=== PATIENT | male | born 1950 | race Two or more races ===

== ENCOUNTER 2017-09-07 09:42 | Emergency (ER) | payer MEDICARE ==
[2017-09-07] MEDS ORDERED: SODIUM CHLORIDE 0.9% 500 ML IV STA (09:50)
[2017-09-07 09:51] VITALS: RESP 16
--- NOTE | 2017-09-07 10:08 | ED ---
General Adult HPI - General Chief complaint: Seizure Stated complaint: Seizure Time Seen by Provider: 09/07/17 09:45 Source: family, EMS, RN notes reviewed Mode of arrival: EMS Limitations: language barrier, altered mental status - History of Present Illness Initial comments: This is a 66-year-old male who has a past medical history significant for right- sided stroke with residual deficit. Patient only can say a few words at a time normally. Patient's states he was on Keppra prophylactically for seizures and was recently taken off of it. states patient had a seizure lasting about 10 minutes Post ictal when EMS arrived. Patient states that he is back to his baseline at this time. states he has never had a seizure in the past. It is difficult to get any other history since the patient does not speak with the states that the patient has had no recent illness no recent fevers or chills no recent nausea vomiting no difficulty breathing. - Related Data Home Medications Medication Instructions Recorded Confirmed Metoprolol Tartrate [Lopressor] 12.5 mg PO BID 09/07/17 09/07/17 Sertraline [Zoloft] 50 mg PO DAILY 09/07/17 09/07/17 Previous Rx's Medication Instructions Recorded levETIRAcetam [Keppra] 250 mg PO Q12HR #20 tablet 09/07/17 Allergies Allergy/AdvReac Type Severity Reaction Status Date / Time No Known Allergies Allergy Verified 09/07/17 09:51 Review of Systems ROS Statement: Those systems with pertinent positive or pertinent negative responses have been documented in the HPI. ROS Other: All systems not noted in ROS Statement are negative. Past Medical History Past Medical History: COPD, CVA/TIA, Pneumonia History of Any Multi-Drug Resistant Organisms: None Reported Past Surgical History: Appendectomy, Hernia Repair, Orthopedic Surgery, Tonsillectomy Past Psychological History: No Psychological Hx Reported Smoking Status: Former smoker Past Alcohol Use History: None Reported Past Drug Use History: None Reported General Exam - General Exam Comments Initial Comments: GENERAL: Patient is well-developed and well-nourished. Patient is nontoxic and well- hydrated and is in no acute distress. ENT: Neck is soft and supple. No significant lymphadenopathy is noted. Oropharynx is clear. Moist mucous membranes. Neck has full range of motion without eliciting any pain. EYES: The sclera were anicteric and conjunctiva were pink and moist. Extraocular movements were intact and pupils were equal round and reactive to light. Eyelids were unremarkable. PULMONARY: Unlabored respirations. Good breath sounds bilaterally. No audible rales rhonchi or wheezing was noted. CARDIOVASCULAR: There is a regular rate and rhythm without any murmurs gallops or rubs. ABDOMEN: Soft and nontender with normal bowel sounds. No palpable organomegaly was noted. There is no palpable pulsatile mass. SKIN: Skin is clear with no lesions or rashes and otherwise unremarkable. NEUROLOGIC: Patient is alert and oriented at his baseline per his . Patient has right sided weakness and right-sided facial droop MUSCULOSKELETAL: Normal extremities with adequate strength and full range of motion. No lower extremity swelling or edema. No calf tenderness. LYMPHATICS: No significant lymphadenopathy is noted PSYCHIATRIC: Normal psychiatric evaluation. Normal interpersonal interactions appears functionally intact in deals appropriately with others. No signs of depression. No signs of anxiety. Limitations: language barrier, altered mental status Course Vital Signs 09/07/17 09/07/17 09:46 10:46 Temperature 98.5 F Pulse Rate 74 68 Respiratory 16 16 Rate Blood Pressure 162/87 141/71 O2 Sat by Pulse 95 100 Oximetry Medical Decision Making - Medical Decision Making EKG shows normal sinus rhythm at 71 bpm TN interval is 158 QRS is 74 QT interval 410 QTC is 445. Patient's EKG shows no ST segment elevation or depression or T wave normalities are noted. I gave the patient thousand milligrams of Keppra and I will send the patient home on the Keppra dose he had before and have him follow-up with his neurologist. - Lab Data Result diagrams: 09/07/17 09:57 09/07/17 09:57 Lab Results 09/07/17 09/07/17 Range/Units 09:57 09:57 WBC 6.8 (3.8-10.6) k/uL RBC 5.01 (4.30-5.90) m/uL Hgb 11.3 L (13.0-17.5) gm/dL Hct 40.1 (39.0-53.0) % MCV 80.1 (80.0-100.0) fL MCH 22.5 L (25.0-35.0) pg MCHC 28.1 L (31.0-37.0) g/dL RDW 17.1 H (11.5-15.5) % Plt Count 350 (150-450) k/uL Neutrophils % 72 % Lymphocytes % 17 % Monocytes % 6 % Eosinophils % 3 % Basophils % 1 % Neutrophils # 4.9 (1.3-7.7) k/uL Lymphocytes # 1.2 (1.0-4.8) k/uL Monocytes # 0.4 (0-1.0) k/uL Eosinophils # 0.2 (0-0.7) k/uL Basophils # 0.0 (0-0.2) k/uL Hypochromasia Marked Anisocytosis Slight Microcytosis Slight Sodium 140 (137-145) mmol/L Potassium 5.1 (3.5-5.1) mmol/L Chloride 106 (98-107) mmol/L Carbon Dioxide 20 L (22-30) mmol/L Anion Gap 14 mmol/L BUN 21 H (9-20) mg/dL Creatinine 1.26 H (0.66-1.25) mg/dL Est GFR (MDRD) Af Amer >60 (>60 ml/min/1.73 sqM) Est GFR (MDRD) Non-Af 57 (>60 ml/min/1.73 sqM) Glucose 84 (74-99) mg/dL Calcium 9.1 (8.4-10.2) mg/dL Total Bilirubin 0.2 (0.2-1.3) mg/dL AST 27 (17-59) U/L ALT 40 (21-72) U/L Alkaline Phosphatase 101 (38-126) U/L Total Protein 6.9 (6.3-8.2) g/dL Albumin 3.7 (3.5-5.0) g/dL Disposition Clinical Impression: New onset seizure Disposition: HOME SELF-CARE Condition: Good Instructions: New-Onset Seizure in Adults (ED) Prescriptions: levETIRAcetam [Keppra] 250 mg PO Q12HR #20 tablet Referrals: Tony John DO [Primary Care Provider] - 1-2 days Time of Disposition: 11:23
[2017-09-07 10:12] LABS: Anisocytosis Slight; Basophils % (A) 1 %; CH 22.7; CHCM 28.3; Eosinophils # (A) 0.2 k/uL (0-0.7); Eosinophils % (A) 3 %; HCT 40.1 % (39.0-53.0); HGB 11.3 gm/dL (13.0-17.5); Hypochromasia Marked; Luc # (Auto) 0.06; Luc % (Auto) 1; Lymphocytes # (A) 1.2 k/uL (1.0-4.8); Lymphocytes % (A) 17 %; MCH 22.5 pg (25.0-35.0); MCHC 28.1 g/dL (31.0-37.0); MCV 80.1 fL (80.0-100.0); Mean Platelet Volume 6.8; Microcytosis Slight; Monocytes # (A) 0.4 k/uL (0-1.0); Monocytes % (A) 6 %; Neutrophils # (A) 4.9 k/uL (1.3-7.7); Neutrophils % (A) 72 %; RBC 5.01 m/uL (4.30-5.90); RDW 17.1 % (11.5-15.5); WBC 6.8 k/uL (3.8-10.6); WBC (Perox) 6.88
[2017-09-07 10:16] LABS: ALT 40 U/L (21-72); AST 27 U/L (17-59); Alkaline Phosphatase 101 U/L (38-126); Anion Gap 14 mmol/L; Blood Urea Nitrogen 21 mg/dL (9-20); Calcium 9.1 mg/dL (8.4-10.2); Carbon Dioxide 20 mmol/L (22-30); Chloride 106 mmol/L (98-107); Glucose 84 mg/dL (74-99); Non-African American GFR(MDRD) 57 (>60 ml/min/1.73 sqM); Potassium 5.1 mmol/L (3.5-5.1); Sodium 140 mmol/L (137-145); Total Bilirubin 0.2 mg/dL (0.2-1.3); Total Protein 6.9 g/dL (6.3-8.2)
--- NOTE | 2017-09-07 10:34 | CT ---
EXAMINATION TYPE: CT brain wo con DATE OF EXAM: 09/07/2017 COMPARISON: NONE HISTORY: Seizure. Prior history of CVA CT DLP: 1098.80 mGycm Automated exposure control for dose reduction was used. FINDINGS: There has been a previous left MCA infarct. There are generalized changes of sulcal prominence and ventriculomegaly, compatible with atrophic leslee nge. There is diffuse periventricular white matter lucency, compatible with chronic white matter isch emic change. There is no acute focal lesion, mass effect or midline shift identified. I do not see ev idence of intracranial blood. Visualized portions of the paranasal sinuses and mastoids are clear. IMPRESSION: 1. NO ACUTE INTRACRANIAL ABNORMALITY. 2. EVIDENCE OF A PREVIOUS LEFT MCA INFARCT. 3. ATROPHIC CHANGE. 4. CHRONIC WHITE MATTER ISCHEMIC CHANGE.
[2017-09-07] MEDS ORDERED: levETIRAcetam 500 MG TAB PO STA (11:07)
[2017-09-07 12:11] VITALS: BP 123/73; PULSE 69; TEMP 97.2
== END 2017-09-07 12:11 | disposition home or self-care (01) ==
LOC: EC 09:42
DX: R56.9 Unspecified convulsions (principal); R41.82 Altered mental status, unspecified; R29.810 Facial weakness; Z87.891 Personal history of nicotine dependence; Z79.899 Other long term (current) drug therapy
CPT/HCPCS: 36415; 70450; 80053; 85025; 93005; 99285

== ENCOUNTER 2019-05-25 18:48 | Observation (INO) | payer MEDICARE ==
--- NOTE | 2019-05-25 19:12 | ED ---
Chest Pain HPI - General Stated Complaint: Chest Pain Time Seen by Provider: 05/25/19 19:07 Source: RN notes reviewed, old records reviewed - History of Present Illness Initial Comments: This is a 5-year-old male the ER for evaluation patient's a poor strain secondary to him and speak a seizure secondary to stroke. Patient's presenting for left sided chest pain chest pain that he noticed when he was putting him into bed. Pain seemed to be she was touching left-sided his chest patient has never had similar pain before. Aside from history of stroke patient has no history of heart disease. No recent travel history sick contacts no trauma no fevers cough or congestion or shortness of breath, patient has no pain currently. MD Complaint: chest pain (Sided) -: hour(s) Onset: during rest Pain Location: left chest Severity: mild Severity scale (1-10): 3 Quality: aching, sharp Consistency: constant Improves With: nothing Worsens With: nothing Anginal Symptoms: nausea Other Symptoms: cough Treatments Prior to Arrival: none - Related Data Home Medications Medication Instructions Recorded Confirmed Metoprolol Tartrate [Lopressor] 25 mg PO DAILY 09/07/17 05/25/19 Aspirin 162 mg PO DAILY 10/28/17 05/25/19 Atorvastatin Calcium [Lipitor] 40 mg PO HS 10/28/17 05/25/19 Clopidogrel Bisulfate [Plavix] 75 mg PO DAILY 10/28/17 05/25/19 Finasteride [Proscar] 5 mg PO DAILY 10/28/17 05/25/19 levETIRAcetam [Keppra] 250 mg PO DAILY 10/28/17 05/25/19 DULoxetine HCL [Cymbalta] 30 mg PO DAILY 05/25/19 05/25/19 Ferrous Sulfate [Feosol] 325 mg PO BID 05/25/19 05/25/19 Metoprolol Tartrate [Lopressor] 12.5 mg PO HS 05/25/19 05/25/19 Allergies Allergy/AdvReac Type Severity Reaction Status Date / Time No Known Allergies Allergy Verified 05/25/19 20:28 Review of Systems ROS Statement: Those systems with pertinent positive or pertinent negative responses have been documented in the HPI. ROS Other: All systems not noted in ROS Statement are negative. 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, seizure disorder, hypertension, BPH, degenerative arthritis, depression, hyperlipidemia History of Any Multi-Drug Resistant Organisms: None Reported Past Surgical History: Appendectomy, Hernia Repair, Orthopedic Surgery, Tonsillectomy Past Anesthesia/Blood Transfusion Reactions: No Reported Reaction Past Psychological History: No Psychological Hx Reported Smoking Status: Former smoker Past Alcohol Use History: None Reported Past Drug Use History: None Reported General Exam General appearance: alert, in no apparent distress Head exam: Present: atraumatic, normocephalic, normal inspection Eye exam: Present: normal appearance, PERRL, EOMI. Absent: scleral icterus, conjunctival injection, periorbital swelling ENT exam: Present: normal exam, mucous membranes moist Neck exam: Present: normal inspection. Absent: tenderness, meningismus, lymphadenopathy Respiratory exam: Present: normal lung sounds bilaterally. Absent: respiratory distress, wheezes, rales, rhonchi, stridor Cardiovascular Exam: Present: regular rate, normal rhythm, normal heart sounds. Absent: systolic murmur, diastolic murmur, rubs, gallop, clicks GI/Abdominal exam: Present: soft, normal bowel sounds. Absent: distended, tenderness, guarding, rebound, rigid Extremities exam: Present: normal inspection, full ROM, normal capillary refill. Absent: tenderness, pedal edema, joint swelling, calf tenderness Back exam: Present: normal inspection Neurological exam: Present: alert, oriented X3, CN II-XII intact Psychiatric exam: Present: normal affect, normal mood Skin exam: Present: warm, dry, intact, normal color. Absent: rash Course Vital Signs 05/25/19 05/25/19 19:09 19:20 Temperature 99.4 F Pulse Rate 90 Pulse Rate [ 80 Flame Planer ] Respiratory 16 Rate Blood Pressure 105/81 O2 Sat by Pulse 96 Oximetry - Reevaluation(s) Reevaluation #1: 05/25/19 20:28 Medical record is reviewed Reevaluation #2: 05/25/19 20:28 No chest pain Chest Pain MDM - MDM 68-year-old male the ER for evaluation patient presents today for evaluation regarding chest pain no specific chest pain findings here x-rays negative labwork normal and EKG is negative for acute disease Disposition Clinical Impression: Atypical chest pain, Recurrent left pleural effusion, Community acquired pneumonia Disposition: ADMITTED IP TO THIS HOSP Condition: Good Is patient prescribed a controlled substance at d/c from ED?: No Referrals: Tony John DO [Primary Care Provider] - 1-2 days
[2019-05-25 20:08] LABS: Basophils # (A) 0.1 k/uL (0-0.2); Basophils % (A) 1 %; Eosinophils # (A) 0.4 k/uL (0-0.7); Eosinophils % (A) 4 %; HCT 47.6 % (39.0-53.0); HGB 15.3 gm/dL (13.0-17.5); Lymphocytes # (A) 1.3 k/uL (1.0-4.8); Lymphocytes % (A) 15 %; MCH 28.8 pg (25.0-35.0); MCHC 32.1 g/dL (31.0-37.0); MCV 89.6 fL (80.0-100.0); Mean Platelet Volume 7.3; Monocytes # (A) 0.8 k/uL (0-1.0); Monocytes % (A) 9 %; Neutrophils % (A) 70 %; Platelet Count 266 k/uL (150-450); RBC 5.31 m/uL (4.30-5.90); RDW 14.9 % (11.5-15.5); WBC 8.5 k/uL (3.8-10.6)
[2019-05-25 20:10] LABS: INR 0.9 (<1.2); Partial Thromboplastin Time 27.7 sec (22.0-30.0); Prothrombin Time 9.8 sec (9.0-12.0)
[2019-05-25 20:11] LABS: Albumin 3.4 g/dL (3.5-5.0); Calcium 8.9 mg/dL (8.4-10.2); Total Bilirubin 0.6 mg/dL (0.2-1.3); Total Protein 6.5 g/dL (6.3-8.2)
[2019-05-25 20:13] LABS: Potassium 5.3 mmol/L (3.5-5.1)
--- NOTE | 2019-05-25 20:41 | XR ---
EXAMINATION TYPE: XR chest 2V DATE OF EXAM: 05/25/2019 COMPARISON: 11/02/2017 HISTORY: 68-year-old male with chest pain TECHNIQUE: AP and lateral views FINDINGS: Heart normal size. Small left pleural effusion with adjacent opacity. Mild interstitial prominence is unchanged. IMPRESSION: Small left pleural effusion with adjacent atelectasis and/or consolidation.
[2019-05-25] MEDS ORDERED: PNEUMONIA PROTOCOL UTILIZED 1 EACH MISC PO PRN (20:52)
[2019-05-25] MEDS ORDERED: IPRATROPIUM-ALBUTEROL 3 ML NEB INHALATION PRN (20:52)
[2019-05-25] MEDS: SODIUM CHLORIDE 0.9% 1,000 ML IV SCH (21:10)
--- NOTE | 2019-05-25 23:38 | P.HPIM ---
History of Present Illness H&P Date: 05/25/19 Chief Complaint: left-sided chest pain 68-year-old male with history of seizure, stroke, hypertension, BPH patient is nonverbal history obtained by talking to the wifeAt bedside She was at his baseline status of health however today when the is moving them around she noticed that she's probably complaining of left-sided chest pain when she touched his left shoulder and left side of the chest. Patient got concerned and decided to bring him to the hospital thinking that he might have pneumonia. When asked, the denies any coughing or trouble breathing or any labored or heavy breathing, denies any fevers or chills. Denies any sick contacts. Denies any changes in mental status. Denies any changes in his appetite. In the ED x-rays of the chest showed possible small pleural effusion on the left side patient was admitted under observation for pulmonary evaluation for possible tapping of that fluid at the indicated in the past he had large amounts of fluid taken out of his lungs when he had pneumonia EKG was unremarkable Labs showed no leukocytosis, mild hyperkalemia. patient is bedridden at home, spends his day sitting in a chair watching TV. 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, seizure disorder, hypertension, BPH, degenerative arthritis, depression, hyperlipidemia History of Any Multi-Drug Resistant Organisms: None Reported Past Surgical History: Appendectomy, Hernia Repair, Orthopedic Surgery, Tonsillectomy Past Anesthesia/Blood Transfusion Reactions: No Reported Reaction Past Psychological History: No Psychological Hx Reported Smoking Status: Former smoker Past Alcohol Use History: None Reported Past Drug Use History: None Reported - Past Family History Father Family Medical History: No Reported History Mother Family Medical History: No Reported History Medications and Allergies Home Medications Medication Instructions Recorded Confirmed Type Metoprolol Tartrate [Lopressor] 25 mg PO DAILY 09/07/17 05/25/19 History Aspirin 162 mg PO DAILY 10/28/17 05/25/19 History Atorvastatin Calcium [Lipitor] 40 mg PO HS 10/28/17 05/25/19 History Clopidogrel Bisulfate [Plavix] 75 mg PO DAILY 10/28/17 05/25/19 History Finasteride [Proscar] 5 mg PO DAILY 10/28/17 05/25/19 History levETIRAcetam [Keppra] 250 mg PO DAILY 10/28/17 05/25/19 History DULoxetine HCL [Cymbalta] 30 mg PO DAILY 05/25/19 05/25/19 History Ferrous Sulfate [Feosol] 325 mg PO BID 05/25/19 05/25/19 History Metoprolol Tartrate [Lopressor] 12.5 mg PO HS 05/25/19 05/25/19 History Allergies Allergy/AdvReac Type Severity Reaction Status Date / Time No Known Allergies Allergy Verified 05/25/19 20:28 Physical Exam Vitals: Vital Signs Temp Pulse Pulse Resp BP Pulse Ox 05/25/19 21:18 98.9 F 85 15 126/84 96 05/25/19 19:20 80 05/25/19 19:09 99.4 F 90 16 105/81 96 Intake and Output 05/25/19 05/25/19 05/25/19 06:59 14:59 22:59 Other: Weight 65.771 kg Constitutional: No acute distress,patient is nonverbal, pleasant Eyes: Anicteric sclerae, moist conjunctiva, no lid-lag Pupils equal round reactive to light ENMT: NC/AT Oropharynx clear, no erythema, exudates Neck: Supple, FROM, no masses, or JVD No carotid bruits No thyromegaly Lungs: Clear to auscultation Clear to percussion Normal respiratory effort, no accessory muscle use Cardiovascular: Heart regular in rate and rhythm, No murmurs, gallops, or rubs No peripheral edema Abdominal: Soft Nontender, no guarding, rebound or rigidity Abdomen moving with respiration Normoactive bowel sounds No hepatomegaly, No splenomegaly No palpable mass No abdominal wall hernia noted Skin: Normal temperature, tone, texture, turgor No induration No subcutaneous nodules No rash, lesions No ulcers Extremities: No digital cyanosis No clubbing Pedal pulses intact and symmetrical Radial pulses intact and symmetrical No calf tenderness Psychiatric: Alert nonverbal, makes good eye contact follow simple commands Appropriate affect Neuro Muscles Strength 5/5 over the left side upper and lower extremities, however right-sided upper and lower extremities paralyzed sensation intact over the left side and decreased over the right side Cranial nerves II-XII grossly intact deep tendon reflexes present on bilateral knees Lymphatics: no palpable cervical or supraclavicular , or inguinal lymph nodes Results CBC & Chem 7: 05/25/19 19:39 05/25/19 19:39 Labs: Abnormal Lab Results - Last 24 Hours (Table) 05/25/19 Range/Units 19:39 Sodium 133 L (137-145) mmol/L Potassium 5.3 H (3.5-5.1) mmol/L Glucose 112 H (74-99) mg/dL Albumin 3.4 L (3.5-5.0) g/dL Assessment and Plan Assessment: 68-year-old male with history of stroke admitted under observation with anticipated length of stay less than 48 hours due to left-sided chest pain in the ED found to have left pleural effusion patient has history of recurrent pneumonia she is admitted for pulmonary evaluation of left pleural effusion for possible tapping Plan: left-sided chest pain small left-sided pleural effusion Rule out pneumonia, history of recurrent pneumonia Pulmonary evaluation for possible tapping monitor vital signs Check cultures No antibiotics started at this time Mild hyperkalemia Insulin and D50 Follow-up levels History of stroke with right-sided paralysis Fall precautions Resume aspirin and statin Regular diet, aspiration precautions DVT prophylaxis Lovenox History of seizure poststroke Continue with Keppra BPH Resume home meds Surrogate decision-maker:patient CODE STATUS:full code Discussed with: Patient, ER, RN Anticipated discharge: pleasant [address]: home A total of 60 minutes was spent on the care of this complex patient more than 50% of the time was spent in counseling and care coordination.
[2019-05-25 23:50] LABS: Glucose,Whole Blood 113 mg/dL (75-99)
[2019-05-26] MEDS ORDERED: INSULIN REGULAR 100 UNIT/ML VIAL IV ONE
[2019-05-26] MEDS ORDERED: DEXTROSE 50% SYRINGE 50 ML IVP ONE
[2019-05-26] MEDS ORDERED: DULoxetine HCL 30 MG CAPSULE.DR PO SCH (09:00)
[2019-05-26] MEDS ORDERED: ENOXAPARIN 40 MG/0.4 ML SYRINGE SQ SCH (09:00)
[2019-05-26] MEDS ORDERED: FINASTERIDE 5 MG TAB PO SCH (09:00)
[2019-05-26] MEDS ORDERED: levETIRAcetam 250 MG TAB PO SCH (09:00)
[2019-05-26] MEDS ORDERED: CLOPIDOGREL 75 MG TAB PO SCH (09:00)
[2019-05-26] MEDS ORDERED: FERROUS SULFATE 325 MG TAB PO SCH (09:00)
[2019-05-26] MEDS ORDERED: ASPIRIN 81 MG PO SCH (09:00)
[2019-05-26] MEDS ORDERED: METOPROLOL TARTRATE 25 MG TAB PO SCH ×2 (09:00)
--- NOTE | 2019-05-26 09:18 | US ---
EXAMINATION TYPE: US chest DATE OF EXAM: 05/26/2019 COMPARISON: The CLINICAL HISTORY: pleural effusion. TECHNIQUE: Targeted ultrasound of the posterior lower EXAM MEASUREMENTS: Right Pleural Effusion pocket size: no evident fluid Left Pleural Effusion pocket size: 1.5 cm Left skin surface to fluid distance: 3.1 cm Right side not marked for possible thoracentesis outside the dept. Left side not marked for possible thoracentesis outside the dept. Pulmonologists are able to review the images in the patient?s EMR. IMPRESSION: Recurrent trace left pleural effusion. No right pleural effusion seen. IMPRESSIONS:
[2019-05-26 09:21] LABS: Calcium 8.6 mg/dL (8.4-10.2)
[2019-05-26] MEDS: SODIUM CHLORIDE 0.9% 1,000 ML IV SCH (09:23)
--- NOTE | 2019-05-26 12:01 | XR ---
EXAMINATION TYPE: XR chest 2V DATE OF EXAM: 05/26/2019 COMPARISON: 05/25/2019 HISTORY: Cough TECHNIQUE: Frontal and lateral views of the chest are obtained. FINDINGS: There is minimal interstitial prominence, similar to the prior. Slight improved aeration o f the left lung base with strand-like bibasilar atelectasis and overall low lung volumes. Cardia medi astinal silhouette is within normal limits. No sizable pleural effusion on the right. Trace left pleu ral effusion is seen. No acute osseous abnormality is evident. IMPRESSION: Slight improved aeration of the left lung base with trace left pleural effusion remainin g.
[2019-05-26 14:53] VITALS: BP 122/84; PULSE 62; RESP 18; TEMP 97.9
--- NOTE | 2019-05-26 15:10 | P.CNPUL ---
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 Denied any shortness of breath, there was no cough or congestion, no fever or chills. No history of recent trauma. No Sick contacts, no exertion. Patient has expressive aphasia, and is a poor historian, so mostly history was obtained from his . Patient after his stroke has been dependent on his for all activities of daily living, patient is mostly chair bound he does get around in his wheelchair, has right-sided weakness, with gait dysfunction. The chest pain persisted, and the insisted patient come in to the hospital to be evaluated. Chest x-ray was obtained showing small left pleural effusion with adjacent atelectasis and/or consolidation. EKG showed normal sinus rhythm without evidence of ST or T-wave abnormality. Ultrasound of the chest was obtained showing only a 1.5 cm fluid pocket on the left. Her pulse ox is 96%, patient is afebrile, hemodynamically stable, his respirations are nonlabored. Today's chest x-ray has been reviewed, showing slight improv ement in aeration of the left lung base with trace left pleural effusion. Labs showed white blood cell count of 8.5, hemoglobin 15.3, sodium of 133, potassium is 5.3, CO2 is 24, B1 is 20, creatinine 0.99, troponin was negative 1, proBNP was within normal limits at 160. Patient is calm and comfortable, he is resting in bed, on room air, is difficult to obtain related to history of expressive aph marisela, no acute discomfort, no pain or wincing with deep breathing or palpation of the chest. No cough or congestion. Patient's stated patient had been eating by mouth, and apparently has not been experiencing any swallowing issues with regular diet and thin liquids. Review of Systems All systems: negative Constitutional: Denies chills, Denies fever Eyes: denies blurred vision, denies pain Ears, nose, mouth and throat: Denies headache, Denies sore throat Cardiovascular: Reports chest pain, Denies shortness of breath Respiratory: Denies cough Gastrointestinal: Denies abdominal pain, Denies diarrhea, Denies nausea, Denies vomiting Musculoskeletal: Denies myalgias Integumentary: Denies pruritus, Denies rash Neurological: Denies numbness, Denies weakness Psychiatric: Denies anxiety, Denies depression Endocrine: Denies fatigue, Denies weight change Past Medical History Past Medical History: CVA/TIA, Hypertension, Pneumonia, Seizure Disorder Additional Past Medical History / Comment(s): CVA with right-sided hemiplegia and expressive aphasia, seizure disorder, hypertension, BPH, degenerative arthritis, depression, hyperlipidemia History of Any Multi-Drug Resistant Organisms: None Reported Past Surgical History: Appendectomy, Hernia Repair, Orthopedic Surgery, Tonsillectomy Past Anesthesia/Blood Transfusion Reactions: No Reported Reaction Past Psychological History: No Psychological Hx Reported Smoking Status: Former smoker Past Alcohol Use History: None Reported Past Drug Use History: None Reported - Past Family History Father Family Medical History: No Reported History Mother Family Medical History: No Reported History Medications and Allergies Home Medications Medication Instructions Recorded Confirmed Type Metoprolol Tartrate [Lopressor] 25 mg PO DAILY 09/07/17 05/25/19 History Aspirin 162 mg PO DAILY 10/28/17 05/25/19 History Atorvastatin Calcium [Lipitor] 40 mg PO HS 10/28/17 05/25/19 History Clopidogrel Bisulfate [Plavix] 75 mg PO DAILY 10/28/17 05/25/19 History Finasteride [Proscar] 5 mg PO DAILY 10/28/17 05/25/19 History levETIRAcetam [Keppra] 250 mg PO DAILY 10/28/17 05/25/19 History DULoxetine HCL [Cymbalta] 30 mg PO DAILY 05/25/19 05/25/19 History Ferrous Sulfate [Feosol] 325 mg PO BID 05/25/19 05/25/19 History Metoprolol Tartrate [Lopressor] 12.5 mg PO HS 05/25/19 05/25/19 History Allergies Allergy/AdvReac Type Severity Reaction Status Date / Time No Known Allergies Allergy Verified 05/25/19 20:28 Physical Exam Vitals: Vital Signs Temp Pulse Pulse Pulse Resp BP BP 05/26/19 14:31 97.9 F 62 18 122/84 05/26/19 07:35 60 05/26/19 07:22 56 L 05/26/19 07:00 98.0 F 64 16 115/79 05/26/19 03:20 16 05/26/19 00:11 98.7 F 67 14 112/68 05/25/19 22:04 98.8 F 74 18 104/70 05/25/19 21:18 98.9 F 85 15 126/84 05/25/19 19:20 80 05/25/19 19:09 99.4 F 90 16 105/81 Pulse Ox 05/26/19 14:31 94 L 05/26/19 07:35 05/26/19 07:22 96 05/26/19 07:00 96 05/26/19 03:20 05/26/19 00:11 96 05/25/19 22:04 96 05/25/19 21:18 96 05/25/19 19:20 05/25/19 19:09 96 Intake and Output 05/25/19 05/26/19 05/26/19 22:59 06:59 14:59 Intake Total 100 800 238 Balance 100 800 238 Intake: Intake, IV Titration 100 800 Amount Sodium Chloride 0.9% 1, 100 800 000 ml @ 100 mls/hr IV . Q10H [facility] Rx#:[id number] Oral 238 Other: Voiding Method Diaper Diaper Incontinent Incontinent # Voids 2 2 Weight 65.771 kg GENERAL EXAM: Alert, pleasant, 68-year-old white male patient with right-sided weakness, and facial weakness, currently on room air, with a pulse ox of 96% comfortable in no apparent distress. HEAD: Normocephalic/atraumatic. EYES: Normal reaction of pupils, equal size. Conjunctiva pink, sclera white. NOSE: Clear with pink turbinates. THROAT: No erythema or exudates. NECK: No masses, no JVD, no thyroid enlargement, no adenopathy. CHEST: No chest wall deformity. Symmetrical expansion. LUNGS: Equal air entry with limited crackles and bilateral bases, but no wheeze, rhonchi or dullness. CVS: Regular rate and rhythm, normal S1 and S2, no gallops, no murmurs, no rubs ABDOMEN: Soft, nontender. No hepatosplenomegaly, normal bowel sounds, no guarding or rigidity. EXTREMITIES: No clubbing, no edema, no cyanosis, 2+ pulses and upper and lower extremities. MUSCULOSKELETAL: Muscle strength and tone normal. SPINE: No scoliosis or deformity SKIN: No rashes CENTRAL NERVOUS SYSTEM: Alert and oriented -3. No focal deficits, tone is normal in all 4 extremities. PSYCHIATRIC: Alert and oriented -3. Appropriate affect. Intact judgment and insight. Results - Laboratory Findings CBC and BMP: 05/25/19 19:39 05/26/19 08:06 PT/INR, D-dimer PT 9.8 sec (9.0-12.0) 05/25/19 19:39 INR 0.9 (<1.2) 05/25/19 19:39 D-Dimer 1.32 mg/L FEU (<0.60) H 05/26/19 11:59 Abnormal lab findings: Abnormal Labs 05/25/19 05/25/19 05/26/19 19:39 23:48 11:59 D-Dimer 1.32 H Sodium 133 L Potassium 5.3 H Glucose 112 H POC Glucose (mg/dL) 113 H Albumin 3.4 L - Diagnostic Findings Chest x-ray: report reviewed, image reviewed Assessment and Plan Plan: Assessment: #1. Left-sided chest wall pain possibly musculoskeletal in origin, he denied any shortness of breath, denied any other pulmonary symptoms. EKG was within normal limits, without ST or T-wave abnormalities, troponin was negative, proBNP was within normal limits #2. Elevated d-dimer, will obtain CTA chest #3. Small left pleural effusion, an ultrasound of the chest did not show sizable pocket for drainage #4. History of previous CVA with right-sided paralysis, and expressive aphasia #5. Hypertension #6. Recent episode of pneumonia #7. Seizure disorder #8. BPH #9. Degenerative arthritis #10. Depression #11. Hyperlipidemia #12. Gait dysfunction Plan: Ultrasound of the chest did not show sizable pleural effusion pocket for drainage, patient never even complain of any shortness of breath, denied any other pulmonary symptoms, left-sided chest wall pain likely related to musculoskeletal origin, d-dimer came back elevated, will obtain CTA chest, signs are stable, patient is maintained stable oxygenation on room air, troponin is negative, proBNP is within normal limits. Otherwise clinically stable, no acute complaints. I performed a history & physical examination of the patient and discussed their management with my nurse practitioner, Татьяна Pang. I reviewed the nurse alphonso barroso's note and agree with the documented findings and plan of care. Lung sounds are positive for basilar crackles. The findings and the impression was discussed with the patient. I attest to the documentation by the nurse practitioner. Time with Patient: Greater than 30
--- NOTE | 2019-05-26 16:21 | CT ---
EXAMINATION TYPE: CT chest angio for PE DATE OF EXAM: 05/26/2019 COMPARISON: Radiograph same day HISTORY: 68-year-old male shortness of breath, rule out pulmonary embolus TECHNIQUE: Contiguous axial scanning of the chest performed with IV Contrast, patient injected with 1 00 mL of Isovue 370. Coronal/sagittal MIP reconstructions performed. CT DLP: 401 mGycm Automated exposure control for dose reduction was used. FINDINGS: Heart normal size without pericardial effusion. Aorta normal caliber with mild arch calcifications and conventional arch vessel branching anatomy. 1.9 cm nodule posterior right lobe of the thyroid gland can be assessed with thyroid ultrasound. No thoracic lymphadenopathy by CT size criteria. Mild to moderate bilateral gynecomastia. There is moderate centrilobular emphysema. Small left pleural effusion is present with adjacent atele ctasis. Some corresponding volume loss and slight leftward shift shift of the heart. Some subtle pleural-based calcifications posterior right upper lobe level. Motion artifacts. No large central or definite lobar pulmonary embolus. Segmental and more distal art erial branches are limited in assessment due to the degree of motion. Visualized upper abdomen shows a 3.8 cm fluid attenuating cyst posteriorly in the right kidney. Bones: Mild multilevel degenerative disc disease. IMPRESSION: 1. MOTION ARTIFACT LIMITING ASSESSMENT FOR PE. NO LARGE CENTRAL OR DEFINITE LOBAR PULMONARY EMBOLUS. ASSESSMENT OF MANY OF THE SEGMENTAL AND MORE DISTAL ARTERIAL BRANCHES IS NONDIAGNOSTIC AND EMBOLI IN THESE LOCATIONS CANNOT BE ADEQUATELY EXCLUDED ON THE BASIS OF THIS EXAM. 2. COPD WITH MODERATE EMPHYSEMA. 3. SMALL LEFT PLEURAL EFFUSION WITH PROMINENT ADJACENT LEFT BASILAR ATELECTASIS. THE VOLUME LOSS RESU LTS IN SOME LEFTWARD SHIFT OF THE HEART. 4. SCATTERED PLEURAL-BASED CALCIFICATIONS ON THE RIGHT. CORRELATE FOR ANY POSSIBLE HISTORY OF PRIOR A SBESTOS EXPOSURE OR PRIOR EMPYEMA/HEMOTHORAX. 5. A 1.9 CM NODULE WITHIN THE RIGHT LOBE OF THE THYROID GLAND. DEDICATED THYROID ULTRASOUND CAN FURTH ER EVALUATE.
--- NOTE | 2019-05-26 17:55 | P.DS ---
Providers Date of admission: 05/25/19 20:52 Expected date of discharge: 05/26/19 Attending physician: Yaquelin Devries DO Consults: 05/25/19 20:52 Consult Physician Routine Consulting Provider: Yvonne Sweeney Consult Reason/Comments: effusion Do you want consulting provider notified?: Yes Primary care physician: [facility] Course: Discharge diagnosis Atypical chest pain Small left-sided pleural effusion Elevated d-dimer Hyperkalemia Essential hypertension History of previous CVA with right-sided hemiplegia and expressive aphasia Seizure disorder The patient is a 68-year-old male that was placed on observation for atypical chest pain and dyspnea, EKG showed normal sinus mechanism without any suggestion of an acute ischemia and troponins was negative. Chest x-ray showed a small pleural effusion. The patient is known to have elevated d-dimer CTA of the chest was ordered was negative for PE, but was consistent with COPD with moderate emphysema and small left pleural effusion with prominent adjacent left basilar atelectasis and some scattered pleural-based calcifications. Chest ultrasound showed only a 1.5 cm fluid pocket on the left that was too small to be amenable to drainage and not thought to contribute to any dyspnea. The patient's chest pain was probably musculoskeletal in etiology. He was subsequently discharged home in stable condition and instructed to follow up with his PCP in 3-5 days. Focused exam Respiratory: Equal air entry with limited crackles and bilateral bases, but no wheeze, rhonchi or dullness Patient Condition at Discharge: Good Plan - Discharge Summary Discharge Rx Participant: No New Discharge Prescriptions: Continue Metoprolol Tartrate [Lopressor] 25 mg PO DAILY levETIRAcetam [Keppra] 250 mg PO DAILY Finasteride [Proscar] 5 mg PO DAILY Clopidogrel Bisulfate [Plavix] 75 mg PO DAILY Aspirin 162 mg PO DAILY Atorvastatin Calcium [Lipitor] 40 mg PO HS Ferrous Sulfate [Iron (65 MG Elemental)] 325 mg PO BID Metoprolol Tartrate [Lopressor] 12.5 mg PO HS DULoxetine HCL [Cymbalta] 30 mg PO DAILY Discharge Medication List Metoprolol Tartrate [Lopressor] 25 mg PO DAILY 09/07/17 [History] Aspirin 162 mg PO DAILY 10/28/17 [History] Atorvastatin Calcium [Lipitor] 40 mg PO HS 10/28/17 [History] Clopidogrel Bisulfate [Plavix] 75 mg PO DAILY 10/28/17 [History] Finasteride [Proscar] 5 mg PO DAILY 10/28/17 [History] levETIRAcetam [Keppra] 250 mg PO DAILY 10/28/17 [History] DULoxetine HCL [Cymbalta] 30 mg PO DAILY 05/25/19 [History] Ferrous Sulfate [Iron (65 MG Elemental)] 325 mg PO BID 05/25/19 [History] Metoprolol Tartrate [Lopressor] 12.5 mg PO HS 05/25/19 [History] Follow up Appointment(s)/Referral(s): Tony John DO [Primary Care Provider] - 1-2 days Discharge Disposition: HOME SELF-CARE
[2019-05-26] MEDS ORDERED: ATORVASTATIN 40 MG TAB PO SCH (21:00)
== END 2019-05-26 17:14 | disposition home or self-care (01) ==
LOC: EC 18:48 → 4SSUR 20:52
PROVIDERS: ADMIT Internal Medicine; ATTEND Internal Medicine
DX: R07.89 Other chest pain (principal); J90 Pleural effusion, not elsewhere classified; J43.9 Emphysema, unspecified; I69.320 Aphasia following cerebral infarction; R11.0 Nausea; E87.5 Hyperkalemia; I69.351 Hemiplegia and hemiparesis following cerebral infarction affecting right dominant side; G40.909 Epilepsy, unspecified, not intractable, without status epilepticus; N40.0 Benign prostatic hyperplasia without lower urinary tract symptoms; I10 Essential (primary) hypertension; F32.9 Major depressive disorder, single episode, unspecified; E78.5 Hyperlipidemia, unspecified; M19.90 Unspecified osteoarthritis, unspecified site; E04.1 Nontoxic single thyroid nodule; Z79.82 Long term (current) use of aspirin; Z79.02 Long term (current) use of antithrombotics/antiplatelets; Z79.899 Other long term (current) drug therapy; Z87.01 Personal history of pneumonia (recurrent); Z90.49 Acquired absence of other specified parts of digestive tract; Z87.891 Personal history of nicotine dependence; Z74.01 Bed confinement status; Z99.3 Dependence on wheelchair
CPT/HCPCS: 96372; 96374; 99285; 36415; 94640; 94760; 93005; 85379; 83880; 80053; 80048; 83690; 83735; 84484; 85025; 85610; 85730; 87040 ×2; 71046 ×2; 76604; 71275; G0378 ×2; S0138; J1650; Q9967